=== PATIENT | female | born 1955 | race Caucasian/White ===

== ENCOUNTER 2016-06-24 09:16 | Outpatient (CLI) ==
--- NOTE | 2016-06-28 07:02 | MAMMO ---
EXAM: Digital screening mammogram HISTORY: Screening mammogram COMPARISON: This is baseline FINDINGS: Bilateral CC and MLO views of the breasts were performed digitally and demonstrate scatte red fibroglandular breast density (25 - 50%). There is an asymmetric nodular density on the right CC view laterally measuring 8.1 cm from the nipple and approximately 0.6 cm in diameter. This is not well visualized on the MLO view. The left breast is normal. IMPRESSION: Asymmetric nodular density in the right lateral breast on CC image. RECOMMENDATION: Diagnostic mammogram and potential ultrasound of the right breast BIRADS category 0: Needs further evaluation
== END 2016-06-24 09:17 | disposition home or self-care (01) ==
LOC: RAD 09:16
PROVIDERS: ATTEND Family Medicine
DX: Z12.31 Encounter for screening mammogram for malignant neoplasm of breast (principal)

== ENCOUNTER 2016-06-30 10:13 | Outpatient (CLI) ==
--- NOTE | 2016-06-30 11:03 | MAMMO ---
EXAM: Digital right diagnostic mammogram HISTORY: Nodular density seen on right CC COMPARISON: Screening mammogram 06/24/2016. Prior screening mammogram from 28 September 2001 was receiv ed for comparison. FINDINGS: Right CC spot compression views of the right breast were performed. The breast density is unchanged. The area of concern for nodularity on the right CC is no longer visualized likely repre senting summation shadows which presses out on compression views. IMPRESSION: No nodular density or abnormalities identified on today's exam with area of concern on prior exam pressing out on spot compression views consistent with soft tissue artifact. RECOMMENDATION: Return to annual screening mammogram BIRADS category I: Negative
== END 2016-06-30 10:14 | disposition home or self-care (01) ==
LOC: RAD 10:13
PROVIDERS: ATTEND Family Medicine
DX: R92.8 Other abnormal and inconclusive findings on diagnostic imaging of breast (principal)